=== PATIENT | male | born 1960 ===

== ENCOUNTER 2017-08-14 02:22 | Emergency (ER) | payer MEDICAID ==
[~2017-08-14] VITALS: Ht 177.8 cm; Wt 78.0 kg
[2017-08-14 03:58] VITALS: Ht 177.8 cm; Wt 78.0 kg
[2017-08-14 05:38] LABS: BASOPHILS % 0.4 % (0.0-2.0); EOSINOPHILS # 0.1 10^3/ul (0.0-0.5); EOSINOPHILS % 1.3 % (0.0-7.0); HEMATOCRIT 44.6 % (42.0-52.0); HEMOGLOBIN 14.8 g/dl (14.0-18.0); LYMPHOCYTES # 1.6 10^3/ul (0.8-2.9); LYMPHOCYTES % 23.4 % (15.0-51.0); MEAN CORPUSCULAR HGB CONC 33.2 g/dl (32.0-37.0); MEAN CORPUSCULAR VOLUME 87.3 fl (82.0-101.0); MEAN PLATELET VOLUME 10.4 fl (7.4-10.4); MONOCYTE # 0.5 10^3/ul (0.3-0.9); MONOCYTES % 6.8 % (0.0-11.0); NEUTROPHIL # 4.7 10^3/ul (1.6-7.5); NEUTROPHILS % 67.8 % (39.0-77.0); PLATELET COUNT 203 10^3/UL (140-415); RED BLOOD COUNT 5.11 10^6/ul (4.70-6.10); RED CELL DISTRIBUTION WIDTH 12.6 % (11.5-14.5); WHITE BLOOD COUNT 6.9 10^3/ul (4.8-10.8)
[2017-08-14] MEDS ORDERED: IBUP100T46 PO (05:45)
[2017-08-14] MEDS ORDERED: LACT1CAP47 PO (05:45)
[2017-08-14] MEDS ORDERED: PSYL3.4P5 PO (05:45)
[2017-08-14 05:55] LABS: ADD UMIC NO; UR ASCORBIC ACID NEGATIVE (NEGATIVE); UR BILIRUBIN (Dip) NEGATIVE (NEGATIVE); UR BLOOD (Dip) NEGATIVE (NEGATIVE); UR CLARITY CLEAR (CLEAR); UR COLOR STRAW (YELLOW); UR GLUCOSE (Dip) NEGATIVE (NEGATIVE); UR KETONES (Dip) TRACE mg/dL (NEGATIVE); UR LEUKOCYTE ESTERASE (Dip) NEGATIVE Leu/ul (NEGATIVE); UR NITRITE (Dip) NEGATIVE (NEGATIVE); UR SPECIFIC GRAVITY (Dip) 1.002 (1.003-1.030); UR TOTAL PROTEIN (Dip) NEGATIVE (NEGATIVE); UR UROBILINOGEN (Dip) NEGATIVE (NEGATIVE)
[2017-08-14 05:58] VITALS: BP 121/96; PULSE 68; RESP 17
[2017-08-14 06:03] LABS: ALBUMIN 4.6 g/dl (3.3-4.9); ALBUMIN/GLOBULIN RATIO 1.48; BILIRUBIN,INDIRECT 2.2 mg/dl (0-1.1); BILIRUBIN,TOTAL 2.2 mg/dl (0.2-1.3); CALCIUM 10.5 mg/dl (8.4-10.2); CREATININE 0.83 mg/dl (0.61-1.24); POTASSIUM 4.5 mmol/L (3.5-5.1); TOTAL PROTEIN 7.7 g/dl (6.1-8.1)
--- NOTE | 2017-08-14 06:28 | ERD ---
ER Documentation Chief Complaint Date/Time DATE: 08/14/17 TIME: 06:26 Chief Complaint Burning and stinging all over body for a month HPI This is a 57-year-old male who presents to the emergency room for evaluation of burning all over his body. The patient states that he has been constipated and has been taking MiraLAX every day. The patient states that he thought he was just constipated and took a Motrin and woke up and felt discomfort all over his body. When this patient was brought to the emergency room he was hypertensive in triage. He denies any chest pain or shortness of breath associated with this. ROS All systems reviewed and are negative except as per history of present illness. Medications Home Meds Reported Medications Ibuprofen* (Ibuprofen*) 100 Mg Tab.chew, 200 MG PO Q6 Y for PAIN, TAB.CHEW 08/14/17 Psyllium Husk-Aspartame (Metamucil Fiber Singles Packet) 3.4 Gm Powd.pack, 3.4 GM PO, PACKET 08/14/17 Lactobacillus Acidophilus (Probiotic) 1 Each Capsule, 1 CAP PO DAILY, CAP 08/14/17 Allergies Allergies: Coded Allergies: ciprofloxacin (Verified Allergy, Unknown, "All kinds of weird stuff", 08/14) PMhx/Soc History of Surgery: Yes (2010 LT Elbow) Anesthesia Reaction: No Hx Neurological Disorder: No Hx Respiratory Disorders: No Hx Cardiac Disorders: No Hx Psychiatric Problems: No Hx Miscellaneous Medical Probl: No Hx Alcohol Use: No Hx Substance Use: No Hx Tobacco Use: No Smoking Status: Never smoker Physical Exam Vitals Vital Signs Date Time Temp Pulse Resp B/P Pulse Ox O2 Delivery O2 Flow Rate FiO2 08/14/17 05:58 68 17 121/96 100 Room Air 08/14/17 05:24 60 12 165/97 100 Room Air 08/14/17 04:55 60 12 183/103 100 Room Air 08/14/17 03:58 98.8 66 16 217/102 100 Physical Exam INITIAL VITAL SIGNS: Reviewed by me GENERAL: The patient is well developed and appropriate for usual state of health in no apparent distress HEENT: Pupils equal, round, and reactive to light. EOMI. There is no scleral icterus. NECK: C-spine is soft and supple, there is no meningismus. There is no cervical lymphadenopathy. LUNGS: Clear to auscultation bilaterally. There are no rales, wheezes or rhonchi. HEART: Regular rate and rhythm, no murmurs, clicks, rubs or gallops. ABDOMEN: Soft, non-tender, non-distended. There are bowel sounds in all four quadrants. No rebound or guarding. EXTREMITIES: There is no peripheral cyanosis or edema. No focal swelling or erythema. NEUROLOGICAL: The patient moves all four extremities with 5/5 strength. Cranial nerves II - XII are intact. Normal gait. Alert and oriented SKIN: There is no apparent rash or petechiae. HEME/LYMPHATIC: There is no evidence of excessive bruising or lymphedema. PSYCHIATRIC: The patient does not appear anxious or depressed. Result Diagram: 08/14/1718 08/14/1718 Results 24 hrs Laboratory Tests Test 08/14/17 05:17 08/14/17 05:18 Bedside Glucose 133mg/dL White Blood Count 6.910^3/ul Red Blood Count 5.1110^6/ul Hemoglobin 14.8g/dl Hematocrit 44.6% Mean Corpuscular Volume 87.3fl Mean Corpuscular Hemoglobin 29.0pg Mean Corpuscular Hemoglobin Concent 33.2g/dl Red Cell Distribution Width 12.6% Platelet Count 59402^3/UL Mean Platelet Volume 10.4fl Neutrophils % 67.8% Lymphocytes % 23.4% Monocytes % 6.8% Eosinophils % 1.3% Basophils % 0.4% Nucleated Red Blood Cells % 0.0/100WBC Neutrophils # 4.710^3/ul Lymphocytes # 1.610^3/ul Monocytes # 0.510^3/ul Eosinophils # 0.110^3/ul Basophils # 0.010^3/ul Nucleated Red Blood Cells # 0.010^3/ul Urine Color STRAW Urine Clarity CLEAR Urine pH 6.0 Urine Specific [place] 1.002 Urine Ketones TRACEmg/dL Urine Nitrite NEGATIVEmg/dL Urine Bilirubin NEGATIVEmg/dL Urine Urobilinogen NEGATIVEmg/dL Urine Leukocyte Esterase NEGATIVELeu/ul Urine Hemoglobin NEGATIVEmg/dL Urine Glucose NEGATIVEmg/dL Urine Total Protein NEGATIVEmg/dl Sodium Level 143mmol/L Potassium Level 4.5mmol/L Chloride Level 104mmol/L Carbon Dioxide Level 28mmol/L Anion Gap 16 Blood Urea Nitrogen 7mg/dl Creatinine 0.83mg/dl Glucose Level 136mg/dl Calcium Level 10.5mg/dl Total Bilirubin 2.2mg/dl Direct Bilirubin 0.00mg/dl Indirect Bilirubin 2.2mg/dl Aspartate Amino Transf (AST/SGOT) 21IU/L Alanine Aminotransferase (ALT/SGPT) 32IU/L Alkaline Phosphatase 66IU/L Total Protein 7.7g/dl Albumin 4.6g/dl Globulin 3.10g/dl Albumin/Globulin Ratio 1.48 Lipase 105U/L Procedures/MDM This 57 year-old male presents to the ER for evaluation of "feeling burning all over his body". When I evaluated this patient he was originally hypertensive however over some time his blood pressures normalized and is now 121/96. The patient does state he is feeling better at this time. He denies any burning or chest pain. The patient has no signs of allergic reaction. This patient could have some irritation and discomfort secondary to a transient hypertension. The patient will be discharged at this time and he says he wants a referral for urology and he will be given A referral at this time. Departure Diagnosis: Primary Impression: Hypertension Condition: Stable ARLENEASHUTOSH FRANCOIS Aug 14, 2017 06:28
== END 2017-08-14 06:49 | disposition home or self-care (01) ==
LOC: E/R 02:22
DX: I10 Essential (primary) hypertension (principal)
CPT/HCPCS: 36415; 80053; 81003; 82962; 83690; 85025; Z7502; 99283